=== PATIENT | female | born 2000 | race African-American/Black ===

== ENCOUNTER 2020-12-05 11:46 | Emergency (ER) | payer OTHER ==
[~2020-12-05] VITALS: Ht 167.6 cm; Wt 76.0 kg
[2020-12-05 13:12] VITALS: BP 136/97
[2020-12-05 13:26] LABS: BASOPHILS % 0.4 % (0.0-2.0); EOSINOPHILS % 0.1 % (0.0-5.0); HEMATOCRIT. 45.6 % (36.0-48.0); HEMOGLOBIN. 15.3 g/dL (12.0-16.0); LYMPHOCYTES % 9.7 % (20.0-50.0); MEAN CORPUSCULAR HEMOGLOBIN 30.3 pg (28.0-32.0); MEAN CORPUSCULAR VOLUME 90.5 fL (81.0-99.0); MEAN PLATELET VOLUME 7.2 fl (7.4-10.4); MONOCYTES % 6.6 % (2.0-8.0); NEUTROPHILS % 83.2 % (40.0-76.0); PLATELET 407 x1000/uL (130-400); RED BLOOD CELL COUNT 5.04 mill/uL (4.2-5.4); RED CELL DISTRIBUTION WIDTH 13.7 % (11.6-14.6)
[2020-12-05 13:33] LABS: CHLORIDE 104 mEq/L (98-107)
[2020-12-05 13:39] LABS: ETHANOL BLOOD < 10 mg/dL
[2020-12-05 13:55] LABS: HCG SCREEN NEGATIVE
== END 2020-12-05 13:48 | disposition left against medical advice (07) ==
LOC: ER 11:46
DX: F14.10 Cocaine abuse, uncomplicated (principal); R20.2 Paresthesia of skin; F19.10 Other psychoactive substance abuse, uncomplicated; F10.10 Alcohol abuse, uncomplicated; Y90.0 Blood alcohol level of less than 20 mg/100 ml
CPT/HCPCS: 36415; 80053; 80320; 84484; 84703; 85025; 93005; 99284; Z7610; G0480